=== PATIENT | male | born 1995 | race Caucasian/White ===

== ENCOUNTER 2020-06-22 08:07 | Emergency (ER) | payer OTHER, SELFPAY ==
[2020-06-22 08:14] VITALS: BP 134/76; PULSE 77; RESP 14; TEMP 36.8; O2SAT 98
--- NOTE | 2020-06-22 08:17 | ED.URI ---
HPI - URI/Sore Throat General Chief Complaint: Upper Respiratory Infection Stated Complaint: headaches/bone and muscle pain/fatigue Time Seen by Provider: 06/22/20 08:19 Source: patient and RN notes reviewed History of Present Illness HPI Narrative: Patient is a 24-year-old male who presents the urgent care with complaints of a headache, fatigue and muscle aches. Patient states the headache has been present for approximately 2 weeks and is currently a 2 out of 10 at this time. Patient has been using ibuprofen. States that the body aches/muscle aches started yesterday after he had fallen causing pain to his left upper thigh and right arm. Patient reports of a scratchy throat at times but does not believe he needs to be swab for strep . Patient denies of any exposure to COVID or strep. Denies of any other upper respiratory symptoms. No other acute complaints. No acute distress noted. Patient read the plan of care. Related Data Home Medications Medication Instructions Recorded Confirmed No Home Medications 06/22/20 06/22/20 Allergies Allergy/AdvReac Type Severity Reaction Status Date / Time No Known Allergies Allergy Verified 06/22/20 08:22 Review of Systems Review of Systems: Narrative: CONSTITUTIONAL: Denies fever, chills, or sweats. EYES: Denies visual changes, redness, or discharge. ENT: Denies rhinorrhea, congestion, sore throat, or otalgia. CARDIOVASCULAR: Denies chest pain, palpitations, or edema. RESPIRATORY: Denies cough or dyspnea. GASTROINTESTINAL: Denies abdominal pain, nausea, vomiting, or diarrhea. GENITOURINARY: Denies dysuria or hematuria. SKIN: Denies rash or itching. MUSCULOSKELETAL: Reports of muscle aches NEUROLOGIC: Reports of a headache All other systems reviewed are negative, except as documented in HPI. PMFSH Comments At the time of my signature, I reviewed and agree with the nursing past medical, surgical, social, and family history. There is no relevant family history pertinent to the patient complaint. Exam Narrative: Exam Narrative: GENERAL: This is a well-nourished, well-developed patient, in no apparent distress. HEAD: normocephalic, atraumatic. EYES: PERRL. Sclera clear/white. Vision is grossly intact. EARS: External ears normal, auditory canals clear and without drainage, TMs normal without perforation. Hearing grossly intact. NOSE: External nose normal with no obvious nasal discharge, nares without redness, no rhinorrhea. THROAT: Mucous membranes moist, posterior pharynx clear. Poor dentition throughout with multiple caries and avulsed dentition NECK: Neck supple CARDIOVASCULAR: Regular rate and rhythm without murmurs, gallops, or rubs. RESPIRATORY: Clear to auscultation. Breath sounds equal bilaterally. No wheezes, rales, or rhonchi. SKIN: warm, intact with no suspicious lesions or rash, good texture and turgor. NEURO: awake, alert, and oriented to person, place and time. There were no obvious focal neurologic abnormalities. EXTREMITIES: No clubbing, cyanosis, or edema. Course Vital Signs Vital signs: Vital Signs Temperature 98.3 F 06/22/20 08:14 Pulse Rate 77 06/22/20 08:14 Respiratory Rate 14 06/22/20 08:14 Blood Pressure 134/76 06/22/20 08:14 Pulse Oximetry 98 06/22/20 08:14 Temperature 98.3 F 06/22/20 08:14 Pulse Rate 77 06/22/20 08:14 Respiratory Rate 14 06/22/20 08:14 Blood Pressure 134/76 06/22/20 08:14 Pulse Oximetry 98 06/22/20 08:14 Reviewed MDM - URI/Sore Throat MDM Narrative Medical decision making narrative: Advised the patient to increase his water intake and rest. May use ice or heating pad as needed to areas of muscle aches. Use Tylenol/ibuprofen as needed for pain. If you develop any increase in symptoms associated with lethargy, fever, shortness of breath?go to the emergency room. Otherwise follow-up with your PCP within 2 to 5 days or for worsening symptoms or failure to improve. Differential Diagnosis Differentia
== END 2020-06-22 08:37 | disposition home or self-care (01) ==
PROVIDERS: Emergency Provider Nurse Practitioner Family
DX: R51 Headache (principal)
CPT/HCPCS: 99211; G0463